=== PATIENT | female | born 1985 | race Caucasian/White ===

== ENCOUNTER 2022-05-07 10:32 | Outpatient (CLI) | payer BC | END 2022-05-07 10:33 | disposition home or self-care (01) | LOC: BICMAMMO 10:32 | PROVIDERS: ATTEND Obstetrics & Gynecology | DX: N63.20 Unspecified lump in the left breast, unspecified quadrant (principal) | CPT/HCPCS: 77066; G0279 ==

== ENCOUNTER 2022-11-14 11:10 | Outpatient (CLI) | payer BC | END 2022-11-14 11:11 | disposition home or self-care (01) | LOC: BICULT 11:10 | PROVIDERS: ATTEND Obstetrics & Gynecology | DX: N63.24 Unspecified lump in the left breast, lower inner quadrant (principal) ==

== ENCOUNTER → 2022-11-20 | Day surgery (SDC) | payer BC | END | disposition home or self-care (01) | LOC: BICULT 12:38 | PROVIDERS: ATTEND Obstetrics & Gynecology | PROC: 0H9U3ZX Drainage of Left Breast, Percutaneous Approach, Diagnostic (ICD-10-PCS; principal; 2022-11-20) | PROC: 07B63ZX Excision of Left Axillary Lymphatic, Percutaneous Approach, Diagnostic (ICD-10-PCS; principal; 2022-11-20) | DX: C50.312 Malignant neoplasm of lower-inner quadrant of left female breast (principal); C77.3 Secondary and unspecified malignant neoplasm of axilla and upper limb lymph nodes; Z17.1 Estrogen receptor negative status [ER-] | CPT/HCPCS: 19083; 38505; 88305; 88342 ==

== ENCOUNTER 2022-11-28 14:55 | Outpatient (CLI) | payer BC ==
[2022-11-28 16:55] LABS: #Eosinphils 0.1 10x3/uL (0.0-0.5); #Monocytes 0.3 10x3/uL (0.0-1.1); #Neutrophils 4.2 10x3/uL (1.5-8.4); %Basophils 0.6 % (0.0-2.0); %Eosinophils 0.8 % (0.0-6.0); %Lymphocytes 36.5 % (18.0-47.0); %Monocytes 4.1 % (0.0-10.0); %Neutrophils 57.7 % (40.0-75.0); Mean Corpuscular HGB CONC 34.2 g/dL (32.0-36.0); Mean Corpuscular Hemoglobin 29.7 pg (27.0-33.0); Mean Corpuscular Volume 86.8 fl (81.6-98.3); Mean Platelet Volume 11.1 fl (7.4-10.4); Platelet Count 210 10x3/uL (150-450); RBC Distribution Width 12.4 % (11.5-14.5); Red Blood Cell (RBC) Count 4.71 10x6/uL (3.90-5.03); White Blood Cell (WBC) Count 7.2 10x3/uL (3.5-10.5)
[2022-11-28 17:13] LABS: BHCG - Serum Negative (NEGATIVE); Pregs Control Background? CLEAR/WHITE (CLR/WHITE); Pregs Control Bar Appear? YES (CONTROL BAR)
[2022-11-28 17:21] LABS: Anion Gap 13 mmol/L (10-20); BUN (Urea Nitrogen) 17 mg/dL (7.0-18.7); Calc. Creatinine Clearance 0 mL/min (70-130); Calcium 9.9 mg/dL (7.8-10.44); Carbon Dioxide 27 mmol/L (22-29); Chloride 104 mmol/L (98-107); Estimated GFR 105; Glucose 79 mg/dL (70-105); Potassium 4.2 mmol/L (3.5-5.1); Sodium 140 mmol/L (136-145)
== END 2022-11-28 14:56 | disposition home or self-care (01) ==
LOC: LABBT 14:55
PROVIDERS: ATTEND Surgery
DX: Z01.812 Encounter for preprocedural laboratory examination (principal); C50.912 Malignant neoplasm of unspecified site of left female breast
CPT/HCPCS: 80048; 84703; 85025

== ENCOUNTER 2022-11-30 11:45 | Outpatient (CLI) | payer BC | END 2022-11-30 11:46 | disposition home or self-care (01) | LOC: PET 11:45 | PROVIDERS: ATTEND Internal Medicine Hematology & Oncology | DX: C50.812 Malignant neoplasm of overlapping sites of left female breast (principal); C50.312 Malignant neoplasm of lower-inner quadrant of left female breast; C77.3 Secondary and unspecified malignant neoplasm of axilla and upper limb lymph nodes; C77.1 Secondary and unspecified malignant neoplasm of intrathoracic lymph nodes | CPT/HCPCS: 78815; A9552 ==

== ENCOUNTER 2022-11-30 12:04 | Day surgery (SDC) | payer BC ==
[2022-11-29 11:37] VITALS: BMI 19.3
[2022-11-30] MEDS ORDERED: Bupivacaine/Epinephrine 0.25% 30 ML VIAL ONE (12:53)
[2022-11-30] MEDS ORDERED: Lidocaine 2% PF 5 ML VIAL ONE (12:53)
[2022-11-30] MEDS ORDERED: fentaNYL PF 100 MCG/2 ML SYRINGE ONE (12:56)
[2022-11-30] MEDS ORDERED: CEFAZOLIN 2 GM VIAL ONE (12:58)
[2022-11-30] MEDS ORDERED: Sodium Chloride 0.9% 100 ML ONE (12:58)
[2022-11-30] MEDS ORDERED: Ondansetron PF 4 MG/2 ML Vial ONE (13:13)
[2022-11-30] MEDS ORDERED: PROPOFOL 200 MG/20 ML VIAL ONE (13:13)
[2022-11-30] MEDS ORDERED: Lidocaine 1% PF 5 ML VIAL ONE (13:13)
[2022-11-30] MEDS ORDERED: ePHEDrine 50 MG/ML VIAL ONE (13:13)
[2022-11-30] MEDS ORDERED: Dexamethasone 20 MG/5 ML VIAL ONE (13:13)
== END 2022-11-30 15:00 | disposition home or self-care (01) ==
LOC: SDC 12:04
PROVIDERS: ATTEND Surgery
PROC: 0JH60WZ Insertion of Totally Implantable Vascular Access Device into Chest Subcutaneous Tissue and Fascia, Open Approach (ICD-10-PCS; principal; 2022-11-30)
PROC: 02HV33Z Insertion of Infusion Device into Superior Vena Cava, Percutaneous Approach (ICD-10-PCS; principal; 2022-11-30)
DX: C50.912 Malignant neoplasm of unspecified site of left female breast (principal)
CPT/HCPCS: 71045; 78815; A9552; C1788; J1100; J1642; J2001; J2405; J2704; J3490

== ENCOUNTER 2022-12-11 09:25 | Day surgery (SDC) | payer BC ==
[2022-12-07 09:24] VITALS: BMI 20.2
[2022-12-11] MEDS ORDERED: Lidocaine 1% PF 5 ML VIAL ONE (09:39)
[2022-12-11] MEDS ORDERED: Sodium Bicarbonate 2.5 MEQ/5 ML VIAL ONE (09:39)
[2022-12-11] MEDS ORDERED: Ondansetron ODT 4 MG TAB ONE (10:00)
[2022-12-11 11:48] VITALS: BP 143/83
== END 2022-12-11 11:30 | disposition home or self-care (01) ==
LOC: ULT 09:25
PROVIDERS: ATTEND Internal Medicine Hematology & Oncology
PROC: 07953ZX Drainage of Right Axillary Lymphatic, Percutaneous Approach, Diagnostic (ICD-10-PCS; principal; 2022-12-11)
PROC: 07B53ZX Excision of Right Axillary Lymphatic, Percutaneous Approach, Diagnostic (ICD-10-PCS; principal; 2022-12-11)
DX: C77.3 Secondary and unspecified malignant neoplasm of axilla and upper limb lymph nodes (principal); C50.312 Malignant neoplasm of lower-inner quadrant of left female breast; Z17.1 Estrogen receptor negative status [ER-]
CPT/HCPCS: 38505; 88305; 88342; Q0162